=== PATIENT | female | born 1960 | race Caucasian/White ===

== ENCOUNTER 2016-10-29 08:50 | Day surgery (SDC) | payer BC ==
[~2016-10-29 08:50] MED LIST: Buffered Lidocaine 1% SYR 3ML* 3 ML/SYR SYRINGE INTRADERM ONE; Famotidine IV* 10 MG/ML 2 ML (20 mg) IV ONE; Morphine INJ* 2 MG/ML 1 ML SYRINGE IV PRN; PROCHLORPERAZINE INJ 5 MG/ML 2 ML VIAL IV PRN; fentaNYL* 50 MCG/ML 2 ML VIAL (100 MCG VIAL) IV PRN; oxyCODONE/Acetamin 5/325 MG* TAB PO PRN
[2016-10-29] MEDS ORDERED: ceFAZolin 2 GM PREMIX(*) 2 GM/50 ML BAG IVPB ONE (09:04)
[2016-10-29] MEDS ORDERED: Midazolam* 1 MG/ML 5 ML VIAL (5 MG) ONE (09:12)
[2016-10-29] MEDS ORDERED: KETAMINE HCL* 50 MG/ML 10 ML VIAL ONE (09:12)
[2016-10-29] MEDS ORDERED: fentaNYL* 50 MCG/ML 2 ML VIAL (100 MCG VIAL) ONE (09:12)
[2016-10-29] MEDS ORDERED: Famotidine IV* 10 MG/ML 2 ML (20 mg) ONE (09:13)
[2016-10-29] MEDS ORDERED: Bupivacaine 0.25% SDV* 30 ML ONE (10:52)
[2016-10-29] MEDS ORDERED: Lidocaine 0.5%* 50 ML SDV ONE (10:52)
[2016-10-29] MEDS ORDERED: ceFAZolin VIAL(*) 1 GM VIAL ONE (11:18)
[2016-10-29] MEDS ORDERED: Propofol* 10 MG/ML 20 ML BTL IV PUSH ONE ×2 (11:24→11:31)
[2016-10-29] MEDS ORDERED: Ondansetron INJ* 2 MG/ML VIAL ONE (11:24)
[2016-10-29] MEDS ORDERED: Lidocaine 2% PF * 5 ML VIAL ONE ×2 (11:24→11:31)
[2016-10-29 12:44] VITALS: BP 175/98
== END 2016-10-29 12:41 | disposition home or self-care (01) ==
LOC: OREAST 08:50
PROVIDERS: ATTEND Plastic Surgery
DX: M67.431 Ganglion, right wrist (principal); I10 Essential (primary) hypertension
CPT/HCPCS: 88304; J0690; J2250; J2405; J2704; J3010

== ENCOUNTER → 2019-04-13 | Day surgery (SDC) | payer BC ==
[~2019-04-13] MED LIST changes: +Acetaminophen TAB* 325 MG ONE; +Acetaminophen TAB* 325 MG PO PRN; -Buffered Lidocaine 1% SYR 3ML* 3 ML/SYR SYRINGE INTRADERM ONE; +Buffered Lidocaine 1% SYRIN* 1 ML/SYRINGE INTRADERM ONE; +Bupivacaine 0.25% SDV PF* 10 ML VIAL INJ ONE; +Dexamethasone IV* 4 MG/ML 1 ML (4 MG) IV SLOW PU ONE; +Dexamethasone IV* 4 MG/ML 1 ML (4 MG) ONE; +DiMENhydriNATE IV* 50 MG/ML VIAL IV PUSH PRN; +DiMENhydriNATE IV* 50 MG/ML VIAL ONE; +Etomidate* 2 MG/ML 20 ML VIAL (40 MG) ONE; -Famotidine IV* 10 MG/ML 2 ML (20 mg) IV ONE; +Famotidine TAB* 20 MG ONE; +Famotidine TAB* 20 MG PO ONE; +Labetalol IV* 5 MG/ML 20 ML VIAL IV PUSH ONE; +Labetalol IV* 5 MG/ML 20 ML VIAL ONE; +Lactated Ringers 1000 ML Bag* 1,000 ML IV SCH; +Lidocaine 1% INJ* 10 MG/ML 30 ML SDV ONE; +Lidocaine 2% PF * 5 ML VIAL ONE; +Midazolam* 1 MG/ML 2 ML VIAL (2 MG) ONE; -Morphine INJ* 2 MG/ML 1 ML SYRINGE IV PRN; +Naloxone* 0.4 MG/ML 1 ML VIAL IV PRN; +Ondansetron INJ* 2 MG/ML VIAL ONE; -PROCHLORPERAZINE INJ 5 MG/ML 2 ML VIAL IV PRN; +Phenylephrine 10 MG/ML VIAL* 1 ML VIAL ONE; +Phenylephrine 40 MCG/ML SYRINGE ONE; +Propofol* 10 MG/ML 20 ML BTL ONE; +Succinylcholine* 20 MG/ML 10 ML VIAL ONE; +VASOPRESSIN 20 UNITS/ML 1 ML VIAL ONE; +fentaNYL* 50 MCG/ML 2 ML VIAL (100 MCG VIAL) ONE; +hydrALAZINE IV* 20 MG/ML VIAL IV SLOW PU PRN; +hydrALAZINE IV* 20 MG/ML VIAL ONE; +oxyCODONE/Acetamin 5/325 MG* TAB ONE
--- NOTE | 2019-04-13 10:22 | BRIEFOPN ---
Brief Operative/Procedure Note - Operation Details Pre-Op Diagnosis: Right thyroid nodule Post-Op Diagnosis: same Procedures: Right thryoid lobectomy Surgeon(s)/Proceduralists: Adi. Assist: SHIMON Nguyen; JESICA Quintanilla Anesthesia: GET Estimated Blood Loss: < 20 ml Findings: as above Specimen(s)/Culture(s) Description: right thyroid lobe Complications: none
--- NOTE | 2019-04-13 12:52 | OP ---
CC: Dr. Maryam Centeno, Dr. Ishmael Avendano OPERATIVE REPORT: DATE OF OPERATION: 04/13/19 DATE OF : 58 SERVICE: General Surgery. SURGEON: Dipika Joshi MD. SENIOR UI WEB DEVELOPER: SHIMON Goodman. ANESTHESIOLOGIST: Dr. Ricky Blakely. ANESTHESIA: General endotracheal anesthesia. PRE-OP DIAGNOSIS: Large right thyroid nodule, [place] IV. POST-OP DIAGNOSIS: Large right thyroid nodule, [place] IV. OPERATIVE PROCEDURE: Right thyroid lobectomy. ESTIMATED BLOOD LOSS: Minimal, less than 10 cc. SPECIMEN: Right thyroid lobe. INDICATIONS FOR SURGERY: Ms. Edmond is a very pleasant 58-year-old female, with a history of a large right thyroid nodule that she had had biopsied. 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 For this reason, she wished to undergo a diagnostic right lobectomy. She understood that the risks included , but were not limited to bleeding, infection, injury to nearby structures such as the recurrent laryngeal nerve. She understood the alternatives and benefits as well and she wished to proceed. DESCRIPTION OF PROCEDURE: The patient was brought back to the operating room and placed on the operating table in a supine position. Sequential compression devices were placed on the bilateral lower extremities for DVT prophylaxis. No antibiotics were administered. General endotracheal anesthesia was induced. A left radial A- line was placed by the anesthesiologist given that the patient has a history of aortic stenosis. Next, the electrodes to the nerve monitor were attached and during this preparation time, it was noted that that patient had an air leak from her endotracheal tube. So, the ET tube was exchanged with a new ET tube by the anesthesiologist. After this, a time-out was performed and local anesthesia consisting of 0.25% Marcaine and 1% lidocaine was infiltrated to the anterior neck. Her neck was then prepped and draped in the normal sterile fashion and then prior to beginning the procedure, a second time- out was performed verifying the patient's name, date of and the procedure to be performed, which is a right thyroid lobectomy. Next, an approximately 4 cm incision was made in a natural crease line approximately 2 fingerbreadths above the sternal notch. The skin was divided down to the subcutaneous tissue. The platysma was divided and then the inferior and superior subplatysmal flaps were developed. The median raphe between the strap muscles was identified and divided and then the thyroid isthmus was identified at the midline. They thyroid itself was divided off of the trachea at the midline flush with the left thyroid lobe. After this was done, the medial attachments of the right thyroid lobe to the trachea were divided and the space of Payne between the cricothyroid muscle and the superior pole was divided. Next, attention was turned towards developing the space lateral to the right thyroid lobe. The middle thyroid vein was identified. The strap muscles were retracted laterally off of the thyroid lobe and then the superior pole vessels were divided using a combination of LigaSure and 2-0 silk ties. After this, with some difficulty given how large the thyroid lobe was and the fact that the patient do not have very much space in her neck, the right lobe was able to be rotated medially and anteriorly out of the neck. The incision had to be extended several millimeters to allow better retraction of the thyroid nodule. After this, the recurrent laryngeal nerve was identified visually and its course was traced out inferiorly and superiorly as it entered the inferior constrictor muscles. After this, with great care, the right thyroid lobe was divided off of the trachea using LigaSure and then taken off the table. It was examined carefully for parathyroid glands; none were identified on the specimen and the upper pole was marked and then was taken off the table for specimen. The right upper parathyroid was identified and it was noted to be in place posterior to the recurrent laryngeal nerve. The lower parathyroid was not definitively identified, but it was likely in the thyrothymic ligament. After this, hemostasis was obtained in the neck. Tisseel was placed. The strap muscles were reapproximated using 4-0 Vicryl sutures. The platysma was reapproximated using 4-0 Vicryl sutures. The skin was closed using a running 5-0 Prolene suture. Sterile dressing was then placed. The patient's anesthesia was reversed and she was taken to the PACU in stable condition. At the end of the case, all counts were correct and I was present during the entirety of the case. [id number]/[facility] #: [id number] [facility] HOSPITALFritz
[2019-04-13 17:11] VITALS: BP 122/78
== END | disposition home or self-care (01) ==
LOC: OR 05:55
PROVIDERS: ATTEND Surgery
DX: C73 Malignant neoplasm of thyroid gland (principal); I10 Essential (primary) hypertension; I35.0 Nonrheumatic aortic (valve) stenosis; E11.9 Type 2 diabetes mellitus without complications; E78.5 Hyperlipidemia, unspecified; H81.10 Benign paroxysmal vertigo, unspecified ear
CPT/HCPCS: 36620; 88307; A9270-GY; J0330; J0360; J1100; J1240; J2250; J2405; J2704; J3010; J3490

== ENCOUNTER → 2019-05-19 | Day surgery (SDC) | payer BC ==
[~2019-05-19] MED LIST changes: +Acetaminophen TAB* 325 MG PO ONE; +Benzocaine/Butamben/Tetracain (CETACAINE - SINGLE USE) 5 gm TOPICAL ONE; +Cisatracurium* 2 MG/ML MDV 5 ML ONE; -Dexamethasone IV* 4 MG/ML 1 ML (4 MG) IV SLOW PU ONE; -DiMENhydriNATE IV* 50 MG/ML VIAL IV PUSH PRN; -DiMENhydriNATE IV* 50 MG/ML VIAL ONE; +EPHEDrine (Pressors)* 50 MG/ML VIAL ONE; -Etomidate* 2 MG/ML 20 ML VIAL (40 MG) ONE; +Famotidine IV* 10 MG/ML 2 ML (20 mg) IV ONE; +Famotidine IV* 10 MG/ML 2 ML (20 mg) ONE; -Famotidine TAB* 20 MG ONE; -Famotidine TAB* 20 MG PO ONE; +Gabapentin CAP(*) 300 MG ONE; +Gabapentin CAP(*) 300 MG PO ONE; +Glycopyrrolate IV* 0.2 MG/ML 1 ML VIAL ONE; +HYDROcodone/ACETAMIN 5-325 MG* 1 TAB PO PRN; -Labetalol IV* 5 MG/ML 20 ML VIAL IV PUSH ONE; -Labetalol IV* 5 MG/ML 20 ML VIAL ONE; +Nalbuphine* 10 MG/ML 1 ML VIAL IV PRN; +Ondansetron INJ* 2 MG/ML VIAL IV PRN; +PROCHLORPERAZINE INJ 5 MG/ML 2 ML VIAL IV PRN; -Phenylephrine 10 MG/ML VIAL* 1 ML VIAL ONE; -Phenylephrine 40 MCG/ML SYRINGE ONE; +Scopolamine 1.5 mg* PATCH ONE; +Scopolamine PATCH Remove* 1 NOTE MISC PATCH OFF ONE; -VASOPRESSIN 20 UNITS/ML 1 ML VIAL ONE; +ceFAZolin 2 GM in NS PREMIX(*) 2 GM/100 ML BAG IVPB ONE; +diPHENhydraMINE IV* 50 MG/ML 1 ml VIAL (BENADRYL) IV PRN; -hydrALAZINE IV* 20 MG/ML VIAL IV SLOW PU PRN; -hydrALAZINE IV* 20 MG/ML VIAL ONE; -oxyCODONE/Acetamin 5/325 MG* TAB ONE; -oxyCODONE/Acetamin 5/325 MG* TAB PO PRN
--- NOTE | 2019-05-19 13:00 | BRIEFOPN ---
Brief Operative/Procedure Note - Operation Details Pre-Op Diagnosis: right Hurthle cell carcinoma Post-Op Diagnosis: right Hurthle cell carcinoma Procedures: flexible laryngoscopy, aborted left completion thyroid lobectomy Surgeon(s)/Proceduralists: Nanette Sebastian Anesthesia: GETA Findings: extensive inflammation and scar tissue in central neck, precluding proceeding with safe surgery Complications: none
--- NOTE | 2019-05-19 15:11 | OP ---
CC: Dr. Ishmael Avendano * DATE OF OPERATION: 05/19/19 - SDS DATE OF : 58 SERVICE: General Surgery. ATTENDING SURGEON: Dipika Joshi MD HANGER OFF: Dr. Nanette Moreno. ANESTHESIOLOGIST: Dr. Marin. ANESTHESIA: General endotracheal anesthesia. PRE-OP DIAGNOSIS: Right Hurthle cell carcinoma. POST-OP DIAGNOSIS: Right Hurthle cell carcinoma. OPERATIVE PROCEDURE: Flexible laryngoscopy and aborted completion of left thyroid lobectomy. ESTIMATED BLOOD LOSS: Minimal, less than 10 cc. SPECIMEN: None. INDICATIONS FOR PROCEDURE: Ms. Edmond is a very pleasant 58-year-old female with a history of right diagnostic lobectomy for a large [place] 4 nodule. It was found to be a Hurthle cell carcinoma; therefore, she presented for completion of left hemithyroidectomy 5 weeks after her initial surgery. She understood that the risks included but were not limited to bleeding, infection, injury to nearby structures such as the recurrent laryngeal nerve. She understood these things as well as alternatives and benefits and wished to proceed. DESCRIPTION OF PROCEDURE: The patient was brought back to the operating room and placed on the operating room table in supine position. Sequential compression devices were placed in the bilateral lower extremities for DVT prophylaxis. Antibiotics were administered. The patient underwent a flexible laryngoscopy after administering sedation and the laryngoscope was advanced to the right nares after administering benzocaine spray. The vocal cords were identified; there was some difficulty given how large her turbinates were, but the vocal cords were noted to be normal with equal midline apposition. Therefore, the laryngoscope was removed and general endotracheal anesthesia was induced. The electrodes of the nerve monitor were attached and then a time-out was performed prior to administering the local anesthesia to her neck, which consist of 0.25% Marcaine and 1% lidocaine. Next, her neck was prepped and draped in normal sterile fashion. An incision was made through her prior midline neck incision approximately 2 fingerbreadths above the sternal notch. The skin was divided down to the subcutaneous tissue. There was great difficulty identifying the platysma given there was large amount of subcutaneous tissue present with scar tissue. Eventually, the platysma was identified. The subplatysmal flaps were very difficult to elevate given how extensive the inflammation in the scar tissue was that was present. The inferior flap was made and the superior flap was developed as well. The midline between the strap muscles was identified. The strap muscles were divided what appeared to be the prior midline. At this point , there was extensive inflammation of scar tissue, very adherent to the trachea. For approximately 30 minutes, I carefully dissected out dense scar tissue and muscle that was attached to the anterior trachea. However, the extensive inflammation and density of the tissue eventually precluded proceeding. I decided to abort the procedure given that I did not feel that was it safe to proceed with such extensive inflammation and that the possibility of an inadvertent injury to the trachea would be much higher. Therefore, hemostasis was then obtained. Given the scar tissue was mainly in the neck anterior to the trachea, there was really not that much concern that the central neck compartments were entered. A 3-0 Prolene suture was used to reapproximate the strap muscles, so that could be easily identified during later surgery. The platysma was reapproximated using 4-0 Vicryl sutures and the skin was closed using a running 5-0 Prolene suture. Sterile dressing was then placed. The patient's anesthesia was reversed and she was taken to the PACU in stable condition. At the end of the case, all counts were correct and I was present during the entirety of the case. [id number]/[facility] #: [id number] MAHI
[2019-05-19 16:02] VITALS: BP 135/84
== END | disposition home or self-care (01) ==
LOC: OR 08:51
PROVIDERS: ATTEND Surgery
DX: C73 Malignant neoplasm of thyroid gland (principal); Z53.09 Procedure and treatment not carried out because of other contraindication; L90.5 Scar conditions and fibrosis of skin; I10 Essential (primary) hypertension; I35.0 Nonrheumatic aortic (valve) stenosis; E11.9 Type 2 diabetes mellitus without complications; Z79.84 Long term (current) use of oral hypoglycemic drugs; Z68.41 Body mass index [BMI] 40.0-44.9, adult
CPT/HCPCS: A9270-GY; C1776; J0330; J0690; J1100; J2250; J2405; J2704; J3010; J3490

== ENCOUNTER 2019-07-21 09:08 | Observation (INO) | payer BC ==
--- NOTE | 2019-07-06 11:14 | HP ---
CC: Dr. Emerson Samuel; Dr. Maryam Centeno * PREOPERATIVE HISTORY AND PHYSICAL: DATE OF ADMISSION/SURGERY: 07/21/19 This patient is scheduled for same-day surgery admission by Dr. Joshi on 07/21/19 DATE OF PREOPERATIVE HISTORY AND PHYSICAL EXAMINATION: 07/05/19. ATTENDING SURGEON: Dr. Dipika Joshi * (dictated by Nasreen Gonsalez NP). CHIEF COMPLAINT: Malignant neoplasm, thyroid gland. HISTORY OF PRESENT ILLNESS: The patient is a 58-year-old female, status post right thyroid lobectomy by Dr. Joshi, 04/13/19 with findings of a 25 mm Hurthle cell carcinoma. She also underwent a flexible laryngoscopy and an aborted completion of a left thyroid lobectomy on 05/19/[address] Joshi due to dense scar tissue and extensive inflammation. Dr. Joshi advised waiting 3 months to repeat surgery to allow for improvement of the extensive scar tissue. The patient is now scheduled for left thyroidectomy on 07/21/19; Dr. Joshi asked Dr. Samuel to assist. Dr. Joshi described the nature of the surgical procedure, the rationale for the procedure, the relevant risks and benefits and today, I reviewed the expected postoperative care and recovery. The patient has had a chance to ask questions and stated that she understands the information and is satisfied with the answers given to her questions. She will sign surgical consent on the day of surgery. PAST MEDICAL HISTORY: Hypertension, hyperlipidemia, prediabetes, and Hurthle cell neoplasm as described in history of present illness. PAST SURGICAL HISTORY: Right thyroid lobectomy on 04/13/19, flexible laryngoscopy on 05/19/19 with aborted completion of left thyroid lobectomy due to dense scar tissue, breast reduction and finger fusion. MEDICATIONS: 1. Lisinopril/hydrochlorothiazide 20/25 mg 1 tablet daily in the morning. 2. Mag glycinate 200 mg p.o. daily. 3. Synthroid 100 mcg p.o. daily. 4. Nasacort 1 spray in each nostril daily as needed. ALLERGIES: No known drug allergies. FAMILY HISTORY: Father with heart disease. Mother with hypertension and stroke. One sister had thyroid nodules. No known anesthesia complications, bleeding tendencies, or clotting disorders. 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 She has never been a smoker. She denies the use of alcohol or other substances. REVIEW OF SYSTEMS: Constitutional: No fevers, chills, excessive fatigue, or unintended weight loss. General: No history of deep vein thrombosis or pulmonary embolism. No bleeding tendencies or blood transfusions. She states that with her first thyroid surgery in March 2019, she had to be intubated twice and also had extreme nausea, but with her second procedure in April 2019, she had no difficulties. Endocrine: Thyroid cancer as described in history of present illness and she has been told that she is prediabetic. Respiratory: No dyspnea on exertion or chronic cough. Cardiovascular: No anginal chest pain, palpitations, or syncopal episodes. Gastrointestinal: No nausea, vomiting, diarrhea, GI bleeding, or constipation. No change in bowel habits. Genitourinary: No dysuria. Musculoskeletal: Normal strength and tone. Integumentary: No chronic rashes or skin changes. Neurologic: No headache, blurred vision, or areas of focal weakness or numbness. Psychiatric: No reported anxiety, depression, or insomnia. PHYSICAL EXAMINATION GENERAL SURVEY: The patient is a 58-year-old female, obese, well developed, in no acute distress. VITAL SIGNS: Height 66 inches, weight 280 pounds, body mass index 45.2. Blood pressure 116/82, pulse 90 and regular, respiratory rate 16, temperature 98.1 tympanic. HEENT: Benign. NECK: Supple. No cervical lymphadenopathy. Anterior neck incision well healed. BACK: No CVA tenderness. LUNGS: Breath sounds bilaterally clear and equal. HEART: Regular rate and rhythm. No murmurs or rubs appreciated. ABDOMEN: Obese. Active bowel sounds. Soft, nondistended, nontender throughout. No obvious masses, organomegaly, or evidence of ventral hernia. PELVIC: Deferred. RECTAL: Deferred. EXTREMITIES: Warm without edema or skin ulceration. NEUROLOGIC: Alert and oriented x3. Steady gait. SKIN: Warm, dry, intact. IMPRESSION: Malignant neoplasm of thyroid gland. PLAN: Same-day surgery admission to Dr. Dipika Joshi's service on Wednesday, , for a left thyroidectomy. KEISHA GONSALEZ, PROFESSOR OF GEOLOGY [id number]/[facility] #: [id number] MAHI
[~2019-07-21 09:08] MED LIST changes: -Acetaminophen TAB* 325 MG ONE; -Acetaminophen TAB* 325 MG PO ONE; -Acetaminophen TAB* 325 MG PO PRN; -Benzocaine/Butamben/Tetracain (CETACAINE - SINGLE USE) 5 gm TOPICAL ONE; -Bupivacaine 0.25% SDV PF* 10 ML VIAL INJ ONE; -Cisatracurium* 2 MG/ML MDV 5 ML ONE; -Dexamethasone IV* 4 MG/ML 1 ML (4 MG) ONE; -EPHEDrine (Pressors)* 50 MG/ML VIAL ONE; -Famotidine IV* 10 MG/ML 2 ML (20 mg) IV ONE; -Famotidine IV* 10 MG/ML 2 ML (20 mg) ONE; -Gabapentin CAP(*) 300 MG ONE; -Gabapentin CAP(*) 300 MG PO ONE; -Glycopyrrolate IV* 0.2 MG/ML 1 ML VIAL ONE; -HYDROcodone/ACETAMIN 5-325 MG* 1 TAB PO PRN; -Lidocaine 1% INJ* 10 MG/ML 30 ML SDV ONE; -Lidocaine 2% PF * 5 ML VIAL ONE; -Midazolam* 1 MG/ML 2 ML VIAL (2 MG) ONE; -Nalbuphine* 10 MG/ML 1 ML VIAL IV PRN; -Naloxone* 0.4 MG/ML 1 ML VIAL IV PRN; -Ondansetron INJ* 2 MG/ML VIAL IV PRN; -Ondansetron INJ* 2 MG/ML VIAL ONE; -PROCHLORPERAZINE INJ 5 MG/ML 2 ML VIAL IV PRN; -Propofol* 10 MG/ML 20 ML BTL ONE; -Scopolamine 1.5 mg* PATCH ONE; -Scopolamine PATCH Remove* 1 NOTE MISC PATCH OFF ONE; -Succinylcholine* 20 MG/ML 10 ML VIAL ONE; -ceFAZolin 2 GM in NS PREMIX(*) 2 GM/100 ML BAG IVPB ONE; -diPHENhydraMINE IV* 50 MG/ML 1 ml VIAL (BENADRYL) IV PRN; -fentaNYL* 50 MCG/ML 2 ML VIAL (100 MCG VIAL) IV PRN; -fentaNYL* 50 MCG/ML 2 ML VIAL (100 MCG VIAL) ONE
[2019-07-21] MEDS ORDERED: Buffered Lidocaine 1% SYRIN* 1 ML/SYRINGE INTRADERM ONE (10:48)
[2019-07-21] MEDS ORDERED: Propofol* 10 MG/ML 20 ML BTL ONE ×2 (12:48→15:21)
[2019-07-21] MEDS ORDERED: Succinylcholine* 20 MG/ML 10 ML VIAL ONE ×2 (12:48→14:54)
[2019-07-21] MEDS ORDERED: Lidocaine 2% PF * 5 ML VIAL ONE (12:48)
[2019-07-21] MEDS ORDERED: Midazolam* 1 MG/ML 2 ML VIAL (2 MG) ONE (12:50)
[2019-07-21] MEDS ORDERED: fentaNYL* 50 MCG/ML 2 ML VIAL (100 MCG VIAL) ONE ×2 (12:51→19:03)
[2019-07-21] MEDS ORDERED: Lidocaine 1% INJ* 10 MG/ML 30 ML SDV ONE (14:08)
[2019-07-21] MEDS ORDERED: Bupivacaine 0.25% SDV PF* 10 ML VIAL INJ ONE (14:08)
[2019-07-21] MEDS ORDERED: Glycopyrrolate IV* 0.2 MG/ML 1 ML VIAL ONE (15:21)
[2019-07-21] MEDS ORDERED: Phenylephrine 40 MCG/ML SYRINGE ONE (15:56)
[2019-07-21] MEDS ORDERED: Dexamethasone IV* 4 MG/ML 1 ML (4 MG) ONE (15:56)
[2019-07-21] MEDS ORDERED: Scopolamine 1.5 mg* PATCH ONE (15:56)
[2019-07-21] MEDS ORDERED: Phenylephrine 10 MG/ML VIAL* 1 ML VIAL ONE (15:56)
[2019-07-21] MEDS ORDERED: Labetalol IV* 5 MG/ML 20 ML VIAL ONE ×2 (16:09→18:31)
[2019-07-21] MEDS ORDERED: Acetaminophen TAB* 325 MG PO PRN (17:30)
[2019-07-21] MEDS ORDERED: Naloxone* 0.4 MG/ML 1 ML VIAL IV PRN (17:30)
[2019-07-21] MEDS ORDERED: oxyCODONE TAB* 5 MG TAB PO PRN (17:30)
[2019-07-21] MEDS ORDERED: DiMENhydriNATE IV* 50 MG/ML VIAL IV PUSH PRN (17:30)
[2019-07-21] MEDS ORDERED: fentaNYL* 50 MCG/ML 2 ML VIAL (100 MCG VIAL) IV PRN (17:30)
[2019-07-21] MEDS ORDERED: Benzocaine/Menthol LOZ* 1 LOZENGE PO PRN (18:27)
[2019-07-21] MEDS ORDERED: oxyCODONE/Acetamin 5/325 MG* TAB PO PRN (18:27)
[2019-07-21] MEDS ORDERED: Ondansetron INJ* 2 MG/ML VIAL IV PRN (18:27)
[2019-07-21] MEDS ORDERED: HYDROmorphone INJ* 0.5 MG/0.5 ML SYRINGE IV SLOW PU PRN (18:27)
[2019-07-21] MEDS ORDERED: Docusate CAP* 100 MG PO PRN (18:27)
[2019-07-21] MEDS ORDERED: Acetaminophen IV 1GM/100ML * 100 ML ONE (18:32)
[2019-07-21] MEDS ORDERED: Lactated Ringers 1000 ML Bag* 1,000 ML IV SCH (19:00)
[2019-07-21] MEDS: Ketorolac INJ* 30 MG/ML 1 ML VIAL IV PRN (20:39)
[2019-07-21] MEDS: Calcium Carbonate TAB* 1250 MG (CALCIUM 500 MG) PO SCH (20:45)
[2019-07-21] MEDS: Heparin VIAL(*) 5000 UNITS/ML VIAL (FIVE THOUSAND) SUBCUT SCH (22:47)
--- NOTE | 2019-07-22 00:45 | OP ---
CC: Dr. Ishmael Avendano OPERATIVE REPORT: DATE OF OPERATION: 07/21/19 DATE OF : 58 SERVICE: General Surgery. SURGEON: Dipika Joshi MD SHAKER REPAIRER: Dr. Emerson Samuel. ANESTHESIOLOGIST: Dr. Gaby Mejias. PRE-OP DIAGNOSIS: Hurthle cell carcinoma. POST-OP DIAGNOSIS: Hurthle cell carcinoma. OPERATIVE PROCEDURE: Completion left thyroidectomy. SPECIMEN: Left thyroid lobe. ESTIMATED BLOOD LOSS: Approximately 50 cc. INDICATIONS: Ms. Edmond is a very pleasant 58-year-old female, who had a right thyroid nodule that was biopsied as [place] IV. She underwent a right thyroid lobectomy, which identified a Hurthle cell carcinoma. Therefore, she presented for a completion left thyroid lobectomy. Of note, that patient underwent an attempted left thyroid lobectomy in April 2019. There was such extensive scar tissue that the trachea could not be identified and the procedure was aborted for safety reasons. The longer period of delay was to allow for decrease in scar tissue to make the completion operation easier. She understood that the risks of surgery included, but were not limited to, bleeding , infection, injury to nearby structures and hypoparathyroidism. She understood the alternatives and benefits and she wished to proceed. DESCRIPTION OF PROCEDURE: The patient was brought back to the operating room and placed on the operating table in the supine position. Sequential compression devices were placed on the bilateral lower extremities for DVT prophylaxis. No antibiotics were administered. General endotracheal anesthesia was induced. Of note, there was some difficulty with intubating the patient and two anesthesiologists were required to perform the intubation. After general endotracheal anesthesia was obtained, the electrodes to the nerve monitor were attached. Her neck was placed in an extended position and a time- out was performed prior to administering local anesthesia to the neck. Her neck was then prepped and draped in normal sterile fashion. A time-out was then performed verifying the patient's name, date of , and the procedure to be performed. The patient had a scar from her former 2 operations. A skin incision was made through the same scar and it was slightly extended towards the left to facilitate exposure. The skin was divided down through the subcutaneous tissue. There was extensive amount of scar tissue in the subcutaneous plane, but this was divided down to where the strap muscles. The strap muscles themselves were very scarred in and given her large habitus, there was great difficulty in identifying the trachea. A small pau wound retractor was placed in the wound bed. The layer of scar and muscle tissue that was divided prior to identifying the trachea was several centimeters. Eventually, the trachea was identified. Once the trachea was identified, attention was turned towards developing a plane more laterally to identify the thyroid lobe. There was also a large amount of scar tissue and strap muscle that was adherent over the thyroid lobe, but eventually with careful dissection , the strap muscles were dissected off the left thyroid lobe. With great care, the upper pole vessels were divided using a combination of 2-0 silk ties and LigaSure. The middle thyroid vein was identified and divided as well. The thyroid lobe was then able to be rotated medially and anteriorly and the upper parathyroid was identified and preserved on its pedicle. The lower parathyroid gland was also identified on the left thyroid lobe. With great care the recurrent laryngeal nerve was identified both visually and with the assistance of the nerve monitor. Once this was identified, the thyroid gland was able to be taken off the trachea. However, this was done with some difficulty given that there was still scar tissue present medially over the trachea. The thyroid was therefore divided in two pieces, one piece that was more anterior and another more posterior, closer to the nerve. Once this was done, the left thyroid lobe was sent off the table as specimen. Careful hemostasis was obtained in the lateral neck. There was a small amount of punctate bleeding around where the thyroid lobe had been taken off the trachea and this was cauterized with care to avoid any injury to the recurrent laryngeal nerve. After hemostasis was obtained, Tisseel was placed in the lateral neck. Attention was turned towards closure. During the dissection of the strap muscles off the midline, there was one superficial vein that had been suture ligated. The suture ligation appeared to be hemostatic. Once hemostasis was obtained, the strap muscles were reapproximated using interrupted 4-0 Vicryl sutures. The scar and dermal layer was closed using interrupted 4-0 Vicryl sutures and then the skin was closed using a running 5-0 Prolene suture. Sterile dressing was then placed. The patient's anesthesia was reversed and she was taken to the PACU in stable condition. At the end of the case, all counts were correct and I was present during the entirety of the case. [id number]/[facility] #: [id number] [facility]PITALFritz
[2019-07-22] MEDS: Calcium Carbonate TAB* 1250 MG (CALCIUM 500 MG) PO SCH ×2 (02:37→08:36)
[2019-07-22] MEDS ORDERED: Levothyroxine TAB* 100 MCG TAB PO SCH (06:00)
[2019-07-22] MEDS: Heparin VIAL(*) 5000 UNITS/ML VIAL (FIVE THOUSAND) SUBCUT SCH (06:25)
[2019-07-22] MEDS: Ketorolac INJ* 30 MG/ML 1 ML VIAL IV PRN (06:34)
[2019-07-22] MEDS ORDERED: Hydrochlorothiazide TAB* 25 MG PO SCH (09:00)
[2019-07-22] MEDS ORDERED: Lisinopril TAB* 10 MG PO SCH (09:00)
--- NOTE | 2019-07-22 10:32 | PN ---
Progress Note - Progress Note Date of Service: 07/22/19 SOAP: Subjective: Reports pain controlled. Sore throat. Tolerated breakfast. Objective: Vital Signs Temp 97.7 F 07/22/19 07:36 Pulse 86 07/22/19 07:36 Resp 12 07/22/19 07:58 BP 113/71 07/22/19 07:36 Pulse Ox 98 07/22/19 07:36 Gen: NAD Neck: dressings c/d/i; no ecchymosis/hematoma Intake & Output 07/21/19 07/22/19 07/22/19 18:59 06:59 18:59 Intake Total 1400 1030 480 Output Total 800 Balance 1400 230 480 Weight 290 lb 3.2 oz Intake: IV Fluids 1400 LR 1400 Oral 1030 480 Output: Urine 800 Active Medications Generic Name Dose Route Start Last Admin Trade Name Freq PRN Reason Stop Dose Admin Acetaminophen 650 mg 07/21/19 17:30 Tylenol Tab* PO ONCE PRN PAIN - MILD Calcium Carbonate 1,250 mg 07/21/19 21:00 07/22/19 08:36 Calcium Carbonate Tab* PO 1,250 mg Q6H DAVON Administration Docusate Sodium 100 mg 07/21/19 18:27 Colace Cap* PO BID PRN CONSTIPATION Heparin Sodium (Porcine) 5,000 units 07/21/19 22:00 07/22/19 06:25 Heparin Vial(*) SUBCUT 5,000 units Q8HR DAVON Administration Hydrochlorothiazide 25 mg 07/22/19 09:00 07/22/19 08:36 Hydrodiuril Tab* PO 25 mg DAILY DAVON Administration Hydromorphone HCl 0.5 mg 07/21/19 18:27 Dilaudid Inj* IV SLOW PU Q1H PRN PAIN - SEVERE Lactated Ringer's 1,000 mls @ 50 mls/hr 07/21/19 19:00 07/21/19 20:19 Lactated Ringers 1000 Ml Bag* IV 50 mls/hr PER RATE DAVON Administration Ketorolac Tromethamine 30 mg 07/21/19 18:27 07/22/19 06:34 Toradol Inj* IV 07/23/19 18:35 30 mg Q6H PRN Administration PAIN - MODERATE Levothyroxine Sodium 200 mcg 07/22/19 06:00 07/22/19 06:25 Synthroid Tab* PO 200 mcg DAILY@0600 DAVON Administration Lisinopril 20 mg 07/22/19 09:00 07/22/19 08:37 Prinivil Tab* PO 20 mg QAM DAVON Administration Ondansetron HCl 4 mg 07/21/19 18:27 Zofran Inj* IV Q4H PRN NAUSEA/VOMITING Oxycodone/Acetaminophen 1 tab 07/21/19 18:27 Percocet 5/325 Tab* PO Q4H PRN PAIN - MODERATE Throat Lozenges 1 soren 07/21/19 18:27 Chloraseptic Soren* PO Q6H PRN SORE THROAT Assessment: POD#1 s/p completion left thyroidectomy. Doing well. Plan: Discharge today.
[2019-07-22 12:03] VITALS: BP 121/66
--- NOTE | 2019-07-22 12:09 | DS ---
DISCHARGE SUMMARY: DATE OF ADMISSION: 07/21/19 DATE OF DISCHARGE: 07/22/19 ATTENDING SURGEON: Dipika Joshi MD ADMISSION DIAGNOSIS: Hurthle cell carcinoma. DISCHARGE DIAGNOSIS: Hurthle cell carcinoma. OPERATIVE TITLE: Completion left thyroid lobectomy. HOSPITAL COURSE: Ms. Edmond is a very pleasant 58-year-old female with a history of right thyroid nodule that was biopsied as [place] IV. She underwent a right thyroid lobectomy last year, which showed a Hurthle cell carcinoma. She therefore presented for a completion left thyroidectomy on 07/21. The surgery was uneventful but given how it was performed late in the day , she was admitted for overnight observation. On the day of discharge, on postoperative day 1, the patient was doing very well. She was tolerating a regular diet. She was ambulating on her own. Her pain was well controlled. She was having minimal pain and mostly throat soreness. She was therefore determined to be an appropriate candidate for discharge. DISCHARGE MEDICATIONS: The patient had no discharge medications as she had already picked up her prescription for Percocet prior to surgery. She also had the prescription for Synthroid that was already filled. She knew the post operative calcium regimen and had her calcium carbonate pills also at home. All the discharge medications had already previously been reviewed with her. PHYSICAL EXAMINATION ON DISCHARGE: Vital Signs: Temperature 97.7, heart rate is 86, respiratory rate is 12, O2 sat 98% O2 on room air, blood pressure is 113/ 71. Neck: Ster-Strips are in place. Incision appears clean, dry, and intact. There is minimal swelling surrounding it and minimal tenderness. No hematoma present. DISCHARGE INSTRUCTIONS: The patient was given a preprinted handout with discharge instructions and she has a followup appointment with myself on . She knows to call the office or the on-call surgeon with any concerns or questions. CONDITION: Good. DISPOSITION: To home. [id number]/[facility] #: [id number] MAHI
== END 2019-07-22 12:35 | disposition home or self-care (01) ==
LOC: OR 09:08 → SSU 18:28
PROVIDERS: ADMIT Surgery; ATTEND Surgery
DX: C73 Malignant neoplasm of thyroid gland (principal); I10 Essential (primary) hypertension; E78.5 Hyperlipidemia, unspecified; R73.03 Prediabetes; Z79.899 Other long term (current) drug therapy
CPT/HCPCS: 88307; 96361; 96372; 96374; 96375; 96376; A9270-GY; G0378; J0330; J1100; J1644; J1885; J2250; J2704; J3010; J3490